=== PATIENT | female | born 1980 | race African-American/Black ===

== ENCOUNTER 2020-07-23 23:02 | Emergency (ER) | payer MEDICAID ==
[~2020-07-23] VITALS: Ht 157.5 cm; Wt 117.9 kg
--- NOTE | 2020-07-23 23:26 | NUR ---
Note zafar in EDM - 07/24/20 at 0047 by EVICTOR PT AAOX4. BIBSELF C/O HAVING SORETHROAT, SOB, AND FEVER. PT PLACED IN BED 8 ON MONITOR AND PULSE OX. LINE ESTABLSIHED, BLOOD WORK SENT TO LAB. AWAITING FOR FURTHER ORDERS.
--- NOTE | 2020-07-23 23:43 | NUR ---
PT AAOX4. BIBSELF C/O HAVING SORETHROAT, SOB, AND FEVER. PT PLACED IN BED 8 ON MONITOR AND PULSE OX. AWAITING FOR MD ORDERS.
[2020-07-23] MEDS ORDERED: DEXAMETHASONE SOD PHOSPHATE 10 MG/ML VIAL ONE (23:48)
--- NOTE | 2020-07-23 23:55 | NUR ---
blood obtained and sent to lab
[2020-07-23] MEDS ORDERED: IPRATROPIUM NEB FS 0.5 MG/2.5 ML AMPUL.NEB ONE (23:58)
[2020-07-23] MEDS ORDERED: ALBUTEROL FS 2.5 MG/3 ML VIAL.NEB ONE (23:58)
[2020-07-24] MEDS ORDERED: DEXAMETHASONE SOD PHOSPHATE 10 MG/ML VIAL IV ONE
[2020-07-24] MEDS ORDERED: IPRATROPIUM NEB FS 0.5 MG/2.5 ML AMPUL.NEB NEB ONE
[2020-07-24] MEDS ORDERED: ALBUTEROL FS 2.5 MG/3 ML VIAL.NEB NEB ONE
[2020-07-24] MEDS ORDERED: IV NS 0.9% 1,000 ML IV ONE
[2020-07-24 00:10] LABS: BASOPHILS # (AUTO) 0.1 /CMM (0.0-0.2); BASOPHILS % (AUTO) 0.5 % (0.0-2.0); EOSINOPHILS % (AUTO) 0.7 % (0.0-6.0); HEMATOCRIT 37 % (33-45); HEMOGLOBIN 11.6 g/dL (11.5-14.8); LYMPHOCYTES # (AUTO) 1.6 /CMM (0.8-4.8); LYMPHOCYTES % (AUTO) 11.7 % (20.0-44.0); MEAN CORPUSCULAR HGB CONC 31 g/dl (31.0-36.0); MEAN CORPUSCULAR VOLUME 71 fL (82-100); MONOCYTES # (AUTO) 0.5 /CMM (0.1-1.30); MONOCYTES % (AUTO) 3.8 % (2.0-12.0); NEUTROPHILS # (AUTO) 11.7 /CMM (1.8-8.9); NEUTROPHILS % (AUTO) 83.3 % (43.0-81.0); PLATELET COUNT (AUTO) 422 /CMM (150-450); RED BLOOD CELL COUNT(AUTO) 5.22 MIL/uL (4.0-5.2)
[2020-07-24 00:42] LABS: ALANINE AMINOTRANSFERASE 17 U/L (12-78); ALBUMIN 3.5 g/dL (3.4-5.0); ALKALINE PHOSPHATASE 111 U/L (46-116); ASPARTATE AMINOTRANSFERASE 17 U/L (15-37); B-TYPE NATRIURETIC PEPTIDE 136 PG/ML (0-125); BILIRUBIN,TOTAL 0.9 mg/dL (0.2-1.0); CALCIUM, SERUM 9.2 mg/dL (8.5-10.1); CARBON DIOXIDE 27 mmol/L (21-32); CHLORIDE 100 mmol/L (98-107); CREATININE 0.9 mg/dL (0.6-1.3); GLUCOSE 125 mg/dL (74-106); POTASSIUM 3.5 mmol/L (3.5-5.1); SODIUM SERUM 137 mmol/L (136-145); TOTAL PROTEIN, SERUM 8.7 g/dL (6.4-8.2); UREA NITROGEN, BLOOD 9 mg/dL (7-18)
[2020-07-24] MEDS ORDERED: KETOROLAC TROMETHAMINE INJ 30 MG/ML VIAL IV ONE (01:00)
[2020-07-24] MEDS ORDERED: KETOROLAC TROMETHAMINE INJ 30 MG/ML VIAL ONE (01:04)
[2020-07-24 01:09] VITALS: BP 129/99
[2020-07-24] MEDS ORDERED: IBUP-1957 PO (01:26)
[2020-07-24] MEDS ORDERED: AMOX-430 PO (01:26)
[2020-07-24] MEDS ORDERED: METH4TAB3 PO (01:26)
--- NOTE | 2020-07-24 02:13 | NUR ---
Patient discharged to home in stable condition. Written and verbal after care instructions given. Patient verbalizes understanding of instruction and RX. IV removed. Catheter intact and site benign. Pressure and 4x4 applied to site. No bleeding noted.
== END 2020-07-24 02:31 | disposition home or self-care (01) ==
LOC: ER 23:08
DX: J06.9 Acute upper respiratory infection, unspecified (principal); Z20.822 Contact with and (suspected) exposure to COVID-19; J45.909 Unspecified asthma, uncomplicated; R94.31 Abnormal electrocardiogram [ECG] [EKG]
CPT/HCPCS: 36415; 71045; 80053; 83880; 84145; 84484; 85025; 93005; 94640; 96361; 96374; 96375; 99285; C9803; J1100; J1885; J7030; U0003